=== PATIENT | male | born 1940 | race Caucasian/White ===

== ENCOUNTER → 2017-02-02 | Outpatient (CLI) | payer MEDICARE, OTHER ==
--- NOTE | 2017-02-02 15:31 | Diagnostic Imaging Report ---
PROCEDURE: CT chest without contrast. TECHNIQUE: Multiple contiguous axial images were obtained through the chest without the use of intravenous contrast. INDICATION: Shortness of breath. Cough. History of asthma. FINDINGS: There is deformity in the posterior aspect of the right hemithorax related to multiple displaced old rib fractures. There is an 8 mm nonspecific nodule in the right upper lobe. There is no significant consolidation, mass or suspicious nodule seen otherwise in the lungs. There is mild scarring in the right lung base. There is a focal area of density seen along the left lateral aspect of the distal trachea probably related to mucus or debris within the lumen rather than a mass. The heart size is normal. Prominent coronary artery calcifications are seen. 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 No mediastinal mass or significantly enlarged lymph node is seen. No axillary lymphadenopathy is noted. Sections in the upper abdomen demonstrate cholecystectomy clips. The osseous structures demonstrate degenerative changes with syndesmophytes in the mid thoracic spine. IMPRESSION: 1. Indeterminate 8 mm right upper lobe pulmonary nodule. Followup study in 4 months with low dose unenhanced CT is recommended to ensure stability. 2. A focal density, approximately 1 cm in size is seen along the left lateral wall of the distal trachea is probably related to mucus and debris rather than a mucosal mass. Dictated by: Dictated on workstation # [id number]
== END ==
LOC: RAD 14:38
PROVIDERS: ATTEND Nurse Practitioner Family
DX: R91.1 Solitary pulmonary nodule (principal); J39.8 Other specified diseases of upper respiratory tract; J45.909 Unspecified asthma, uncomplicated
CPT/HCPCS: 71250

== ENCOUNTER → 2017-05-17 | Outpatient (CLI) | payer MEDICARE, OTHER ==
--- NOTE | 2017-05-17 13:35 | Diagnostic Imaging Report ---
PROCEDURE: CT chest without contrast. TECHNIQUE: Multiple contiguous axial images were obtained through the chest without the use of intravenous contrast. INDICATION: Shortness of breath and right chest pain. History of asthma and lung nodules. COMPARISON: Comparison made with prior examination from 02/02/2017. FINDINGS: There is an unchanged faint 8 mm nodule in the right upper lobe. The previously seen nodule in the trachea is no longer visualized. This likely reflected some inspissated mucus. There is some linear scarring in both lung bases. There are no other discrete pulmonary nodules, masses, or infiltrates. There is no pneumothorax. There are multiple old right lateral rib fractures. There are coronary artery calcifications. Heart size is normal. The ascending aorta measures 4 cm. The visualized intra-abdominal structures are unremarkable. There are mild degenerative changes in the thoracic spine. IMPRESSION: Stable faint 8 mm nodule in the right upper lobe. There is also some linear scarring or atelectasis in the lung bases, right greater than left. Extensive coronary artery calcifications. Old post-traumatic changes to the right chest where there are several old healed rib fractures. Mild thoracic spondylosis. Dictated by: Dictated on workstation # [id number]
== END ==
LOC: RAD 11:10
PROVIDERS: ATTEND Nurse Practitioner Family
DX: R91.1 Solitary pulmonary nodule (principal); R06.02 Shortness of breath; J45.909 Unspecified asthma, uncomplicated; I25.10 Atherosclerotic heart disease of native coronary artery without angina pectoris; M47.814 Spondylosis without myelopathy or radiculopathy, thoracic region; Z87.81 Personal history of (healed) traumatic fracture
CPT/HCPCS: 71250